=== PATIENT | female | born 1975 | race Two or more races ===

== ENCOUNTER → 2019-10-13 | Outpatient (CLI) | payer BC, OTHER ==
[~2019-10-13] MED LIST: None at this time
[2019-10-13 15:57] LABS: BASOPHILS # (AUTO) 0.06 x10^3/uL (0-0.1); BASOPHILS % (AUTO) 1 % (0-1); EOSINOPHILS # (AUTO) 0.15 x10^3/uL (0-0.4); EOSINOPHILS % (AUTO) 2 % (1-7); LYMPHOCYTES # (AUTO) 1.38 x10^3/uL (1-3.4); LYMPHOCYTES % (AUTO) 18 % (22-44); MD NO; MEAN CORPUSCULAR HEMOGLOBIN 29.2 pg (27.0-34.8); MEAN CORPUSCULAR HGB CONC 32.7 g/dL (32.4-35.8); MEAN CORPUSCULAR VOLUME 89.2 fL (80-100); MEAN PLATELET VOLUME 9.2 fL (7.4-10.4); MONOCYTES # (AUTO) 0.55 x10^3/uL (0.2-0.8); MONOCYTES % (AUTO) 7 % (2-9); NEUTROPHILS # (AUTO) 5.58 x10^3/uL (1.8-6.8); NEUTROPHILS % (AUTO) 72 % (42-75); PLATELET COUNT 297 x10^3/uL (130-400); RED BLOOD COUNT 4.53 x10^6/uL (3.82-5.3)
[2019-10-13 16:04] LABS: ALBUMIN 3.8 g/dL (3.4-5.0); ANION GAP 7 mmol/L (5-15); CALCIUM 8.9 mg/dL (8.5-10.1); CHLORIDE 108 mmol/L (98-107)
[2019-10-13 16:08] LABS: ALANINE AMINOTRANSFERASE 20 U/L (12-78); ALKALINE PHOSPHATASE 62 U/L (45-117); BILIRUBIN,TOTAL 0.8 mg/dL (0.2-1.0); CREATININE 0.91 mg/dL (0.55-1.02); TOTAL PROTEIN 7.4 g/dL (6.4-8.2)
== END | disposition home or self-care (01) ==
LOC: STAR 14:56
PROVIDERS: ATTEND Specialist
DX: Z01.818 Encounter for other preprocedural examination (principal); D21.9 Benign neoplasm of connective and other soft tissue, unspecified
CPT/HCPCS: 36415; 80053; 85025; 93005

== ENCOUNTER 2019-10-20 12:35 | Observation (INO) | payer BC, OTHER ==
[2019-10-20] VITALS (9 sets, daily range): BP systolic 93–111; BP diastolic 61–69
[~2019-10-20] VITALS: Ht 160 cm; Wt 72.6 kg
[2019-10-20] MEDS ORDERED: CHLORHEXIDINE 15 ML UDC ONE (12:58)
[2019-10-20] MEDS ORDERED: CHLORHEXIDINE 15 ML UDC MM ONE (13:00)
[2019-10-20] MEDS ORDERED: SCOPOLAMINE 1MG PATCH TD SCH (13:00)
[2019-10-20] MEDS ORDERED: GABAPENTIN 300 MG CAPSULE PO ONE (13:00)
[2019-10-20] MEDS ORDERED: ACETAMINOPHEN 500 MG TABLET PO ONE (13:00)
[2019-10-20] MEDS: LACTATED RINGERS 1,000 ML IV SCH ×2 (13:04→23:05)
[2019-10-20] MEDS ORDERED: MIDAZOLAM 1 MG/ML, 2ML ONE (13:41)
[2019-10-20] MEDS ORDERED: FENTANYL PF 250 MCG/5ML ONE (13:41)
[2019-10-20] MEDS ORDERED: ROPIvacaine/PF 0.2%, 20 ML ONE ×2 (13:48)
[2019-10-20] MEDS ORDERED: EPINEPHRINE 1 MG/ML, 1ML ONE (13:49)
[2019-10-20 14:13] LABS: HCG UR SG 1.018 (1.003-1.030)
[2019-10-20] MEDS ORDERED: hydrALAzine 20 MG/ML, 1ML IV PRN (14:30)
[2019-10-20] MEDS ORDERED: DIPHENHYDRAMINE 50 MG/ML, 1ML IVPush PRN (14:30)
[2019-10-20] MEDS ORDERED: MEPERIDINE/PF 25MG/0.5ML IVPush PRN (14:30)
[2019-10-20] MEDS ORDERED: PROMETHAZINE 25 MG/ML, 1ML IVPush PRN (14:30)
[2019-10-20] MEDS ORDERED: OXYcodone 5 MG/5 ML ORAL.SOL UDC PO PRN (14:30)
[2019-10-20] MEDS ORDERED: FENTANYL PF 100 MCG/2ML IV PRN (14:30)
[2019-10-20] MEDS ORDERED: HYDROmorphone 1 MG/ML, 1ML INJ IVPush PRN (14:30)
[2019-10-20] MEDS ORDERED: LABETALOL 5MG/ML, 20ML IV PRN (14:30)
[2019-10-20] MEDS ORDERED: HALOPERIDOL 5 MG/ML IV PRN (14:30)
[2019-10-20] MEDS ORDERED: FENTANYL PF 100 MCG/2ML ONE (16:39)
[2019-10-20] MEDS ORDERED: KETOROLAC 30 MG/1 ML ONE ×2 (17:14)
[2019-10-20] MEDS ORDERED: SUCCINYLCHOLINE 20 MG/ML, 10ML ONE (17:25)
[2019-10-20] MEDS ORDERED: ROCURONIUM 10MG/ML,5ML ONE (17:25)
[2019-10-20] MEDS ORDERED: CEFAZOLIN 1,000 MG ONE (17:25)
[2019-10-20] MEDS ORDERED: NEOSTIGMINE 1 MG/ML, 10ML ONE (17:25)
[2019-10-20] MEDS ORDERED: DEXAMETHASONE 4 MG/ML, 1ML ONE (17:25)
[2019-10-20] MEDS ORDERED: PROPOFOL 10 MG/ML, 20ML ONE (17:25)
[2019-10-20] MEDS ORDERED: ONDANSETRON 2MG/ML, 2ML ONE (17:25)
[2019-10-20] MEDS ORDERED: GLYCOPYRROLATE 0.2MG/1ML, 5ML ONE (17:25)
[2019-10-20] MEDS ORDERED: OXYcodone 5 MG/5 ML ORAL.SOL UDC ONE (17:47)
[2019-10-20] MEDS ORDERED: MEPERIDINE/PF 25MG/ML,1ML ONE (17:47)
[2019-10-20] MEDS ORDERED: HYDROmorphone 2 MG/ML, 1ML IV PRN (19:30)
[2019-10-20] MEDS: D5%-LACTATED RINGERS 1,000 ML IV SCH (19:30)
[2019-10-20] MEDS ORDERED: ONDANSETRON 2MG/ML, 2ML IV PRN (19:30)
[2019-10-20] MEDS ORDERED: MEPERIDINE/PF 100 MG/ML IM PRN (19:30)
[2019-10-20] MEDS ORDERED: INSTRUCTION SEE COMMENTS XX PRN (19:30)
[2019-10-20] MEDS ORDERED: CEFAZOLIN PMX 1GM/50ML 50 ML IVPB SCH (23:00)
[2019-10-20] MEDS: KETOROLAC 30 MG/1 ML IV SCH (23:53)
[2019-10-20] MEDS: SIMETHICONE 80 MG CHEW TAB PO SCH (23:54)
[2019-10-21] MEDS: OXYcodone 5 MG/5 ML ORAL.SOL UDC PO PRN ×3 (03:00→13:07)
[2019-10-21] MEDS: D5%-LACTATED RINGERS 1,000 ML IV SCH ×2 (03:02→10:13)
[2019-10-21 03:07] VITALS: BP 106/66
[2019-10-21] MEDS: KETOROLAC 30 MG/1 ML IV SCH ×2 (05:40→11:52)
[2019-10-21] MEDS: SIMETHICONE 80 MG CHEW TAB PO SCH (08:21)
[2019-10-21 08:55] VITALS: BP 92/52
[2019-10-21] MEDS ORDERED: IBUP-1223 PO (14:25)
[2019-10-21] MEDS ORDERED: OXYC5CAP2 PO (14:26)
[2019-10-21] MEDS ORDERED: IBUPROFEN 600 MG TABLET PO SCH (23:00)
== END 2019-10-21 14:33 | disposition home or self-care (01) ==
LOC: OUT 12:35 → 2NW 19:18 → DCLOUNGE 10-21 14:28
PROVIDERS: ADMIT Specialist; ATTEND Specialist
DX: Z03.818 Encounter for observation for suspected exposure to other biological agents ruled out (principal); D25.9 Leiomyoma of uterus, unspecified; N92.0 Excessive and frequent menstruation with regular cycle
CPT/HCPCS: 36415; 58150; 81025; 85014; 85018; 86850; 86900; 88307; 96365; 96375; 96376; G0378; J0171; J0330; J0690; J1100; J1885; J2175; J2250; J2405; J2704; J2710; J2795; J3010; J7120; J7121; U0001